=== PATIENT | female | born 1945 | race Two or more races ===

== ENCOUNTER 2018-07-13 09:34 | Outpatient (CLI) | payer OTHER | END 2018-07-13 09:40 | disposition home or self-care (01) | LOC: LAB 09:34 | DX: I10 Essential (primary) hypertension (principal); M54.5 Low back pain; E55.9 Vitamin D deficiency, unspecified; E66.8 Other obesity; M89.9 Disorder of bone, unspecified; M81.0 Age-related osteoporosis without current pathological fracture; Z12.11 Encounter for screening for malignant neoplasm of colon; Z12.31 Encounter for screening mammogram for malignant neoplasm of breast ==

== ENCOUNTER → 2018-07-18 08:19 | Outpatient (CLI) | payer OTHER | END | disposition home or self-care (01) | LOC: LAB 08:19 | DX: Z12.11 Encounter for screening for malignant neoplasm of colon (principal); I10 Essential (primary) hypertension; M54.5 Low back pain; E55.9 Vitamin D deficiency, unspecified; E66.8 Other obesity; M89.9 Disorder of bone, unspecified; M81.0 Age-related osteoporosis without current pathological fracture; Z12.31 Encounter for screening mammogram for malignant neoplasm of breast ==

== ENCOUNTER 2018-07-22 14:01 | Outpatient (CLI) | payer OTHER | END 2018-07-22 14:19 | disposition home or self-care (01) | LOC: MAMO-SONO 14:01 | DX: Z12.31 Encounter for screening mammogram for malignant neoplasm of breast (principal); Z87.898 Personal history of other specified conditions; Z12.11 Encounter for screening for malignant neoplasm of colon; I10 Essential (primary) hypertension; M54.5 Low back pain; E55.9 Vitamin D deficiency, unspecified; E66.8 Other obesity; M81.0 Age-related osteoporosis without current pathological fracture; M89.8X8 Other specified disorders of bone, other site ==

== ENCOUNTER 2018-11-25 10:23 | Outpatient (CLI) | payer OTHER | END 2018-11-25 13:48 | disposition home or self-care (01) | LOC: LAB 10:23 | DX: M54.5 Low back pain (principal); I10 Essential (primary) hypertension; E55.9 Vitamin D deficiency, unspecified; E66.8 Other obesity; M89.8X8 Other specified disorders of bone, other site; M81.0 Age-related osteoporosis without current pathological fracture; Z12.11 Encounter for screening for malignant neoplasm of colon; Z12.31 Encounter for screening mammogram for malignant neoplasm of breast ==

== ENCOUNTER 2019-03-17 08:35 | Outpatient (CLI) | payer OTHER | END 2019-03-17 16:21 | disposition home or self-care (01) | LOC: LAB 08:35 | DX: M54.5 Low back pain (principal); E55.9 Vitamin D deficiency, unspecified; E66.8 Other obesity; M89.8X8 Other specified disorders of bone, other site; I11.9 Hypertensive heart disease without heart failure; E55.0 Rickets, active; M81.0 Age-related osteoporosis without current pathological fracture; E66.01 Morbid (severe) obesity due to excess calories; E66.3 Overweight; E64.8 Sequelae of other nutritional deficiencies; Z12.11 Encounter for screening for malignant neoplasm of colon; Z12.31 Encounter for screening mammogram for malignant neoplasm of breast ==

== ENCOUNTER → 2019-07-10 10:37 | Outpatient (CLI) | payer OTHER | END | disposition home or self-care (01) | LOC: LAB 10:37 | DX: M54.5 Low back pain (principal); E55.9 Vitamin D deficiency, unspecified; E66.8 Other obesity; M89.9 Disorder of bone, unspecified; I11.9 Hypertensive heart disease without heart failure; E55.0 Rickets, active; M81.0 Age-related osteoporosis without current pathological fracture; E66.01 Morbid (severe) obesity due to excess calories; E66.3 Overweight; Z12.11 Encounter for screening for malignant neoplasm of colon; Z12.31 Encounter for screening mammogram for malignant neoplasm of breast; E64.8 Sequelae of other nutritional deficiencies ==

== ENCOUNTER → 2019-07-16 | Outpatient (CLI) | payer OTHER | END | disposition home or self-care (01) | LOC: NUCLEAR 12:34 | DX: M81.0 Age-related osteoporosis without current pathological fracture (principal) ==

== ENCOUNTER 2019-07-28 09:09 | Outpatient (CLI) | payer OTHER | END 2019-07-28 09:11 | disposition home or self-care (01) | LOC: MAMO-SONO 09:09 | DX: Z12.31 Encounter for screening mammogram for malignant neoplasm of breast (principal); M54.5 Low back pain; E55.9 Vitamin D deficiency, unspecified; E66.8 Other obesity; M89.8X8 Other specified disorders of bone, other site; I11.9 Hypertensive heart disease without heart failure; E55.0 Rickets, active; M81.0 Age-related osteoporosis without current pathological fracture; E66.01 Morbid (severe) obesity due to excess calories; E66.3 Overweight; E64.8 Sequelae of other nutritional deficiencies; Z12.11 Encounter for screening for malignant neoplasm of colon ==

== ENCOUNTER 2019-09-02 09:04 | Outpatient (CLI) | payer OTHER | END 2019-09-02 10:02 | disposition home or self-care (01) | LOC: LAB 09:04 | DX: M54.5 Low back pain (principal); E66.8 Other obesity; E55.9 Vitamin D deficiency, unspecified; M89.8X8 Other specified disorders of bone, other site; I11.9 Hypertensive heart disease without heart failure; E55.0 Rickets, active; M81.0 Age-related osteoporosis without current pathological fracture; E66.01 Morbid (severe) obesity due to excess calories; E66.3 Overweight; E64.8 Sequelae of other nutritional deficiencies; Z12.11 Encounter for screening for malignant neoplasm of colon; Z12.31 Encounter for screening mammogram for malignant neoplasm of breast ==

== ENCOUNTER → 2020-03-08 07:15 | Outpatient (CLI) | payer OTHER | END | disposition home or self-care (01) | LOC: LAB 07:15 | PROVIDERS: ATTEND Internal Medicine | DX: M54.5 Low back pain (principal); E55.9 Vitamin D deficiency, unspecified; E66.8 Other obesity; M89.8X8 Other specified disorders of bone, other site; I11.9 Hypertensive heart disease without heart failure; E55.0 Rickets, active; M81.0 Age-related osteoporosis without current pathological fracture; E66.01 Morbid (severe) obesity due to excess calories; E66.3 Overweight; E64.9 Sequelae of unspecified nutritional deficiency; Z12.11 Encounter for screening for malignant neoplasm of colon; Z12.31 Encounter for screening mammogram for malignant neoplasm of breast ==

== ENCOUNTER → 2020-03-09 | Outpatient (CLI) | payer OTHER | END | disposition home or self-care (01) | LOC: LAB 07:03 | PROVIDERS: ATTEND Internal Medicine | DX: M54.5 Low back pain (principal); E55.9 Vitamin D deficiency, unspecified; E66.8 Other obesity; M89.8X8 Other specified disorders of bone, other site; I11.9 Hypertensive heart disease without heart failure; E55.0 Rickets, active; M81.0 Age-related osteoporosis without current pathological fracture; E66.01 Morbid (severe) obesity due to excess calories; E66.3 Overweight; Z12.11 Encounter for screening for malignant neoplasm of colon; Z12.31 Encounter for screening mammogram for malignant neoplasm of breast ==

== ENCOUNTER → 2020-08-21 07:28 | Outpatient (CLI) | payer OTHER | END | disposition home or self-care (01) | LOC: LAB 07:28 | PROVIDERS: ATTEND Internal Medicine | DX: E03.8 Other specified hypothyroidism (principal); I11.9 Hypertensive heart disease without heart failure; E55.0 Rickets, active; E64.9 Sequelae of unspecified nutritional deficiency; E66.01 Morbid (severe) obesity due to excess calories; E66.3 Overweight; E55.9 Vitamin D deficiency, unspecified; E66.8 Other obesity; I10 Essential (primary) hypertension; M54.5 Low back pain; E78.89 Other lipoprotein metabolism disorders ==

== ENCOUNTER 2020-12-04 08:17 | Outpatient (CLI) | payer OTHER | END 2020-12-04 08:26 | disposition home or self-care (01) | LOC: LAB 08:17 | PROVIDERS: ATTEND Internal Medicine | DX: E03.8 Other specified hypothyroidism (principal); E55.0 Rickets, active; E66.01 Morbid (severe) obesity due to excess calories; E66.3 Overweight; E55.9 Vitamin D deficiency, unspecified; E66.8 Other obesity; I10 Essential (primary) hypertension; M54.5 Low back pain; E78.89 Other lipoprotein metabolism disorders ==

== ENCOUNTER 2021-10-10 10:13 | Outpatient (CLI) | payer OTHER | END 2021-10-10 15:00 | disposition home or self-care (01) | LOC: LAB 10:13 | PROVIDERS: ATTEND Internal Medicine | DX: E03.8 Other specified hypothyroidism (principal); I11.9 Hypertensive heart disease without heart failure; E55.0 Rickets, active; E64.8 Sequelae of other nutritional deficiencies; E66.01 Morbid (severe) obesity due to excess calories; E66.3 Overweight; E55.9 Vitamin D deficiency, unspecified; E66.8 Other obesity; Z12.11 Encounter for screening for malignant neoplasm of colon; I10 Essential (primary) hypertension; M54.59 Other low back pain; Z12.31 Encounter for screening mammogram for malignant neoplasm of breast; Z13.820 Encounter for screening for osteoporosis; E78.89 Other lipoprotein metabolism disorders ==

== ENCOUNTER → 2021-11-14 09:40 | Outpatient (CLI) | payer OTHER | END | disposition home or self-care (01) | LOC: LAB 09:40 | PROVIDERS: ATTEND Internal Medicine | DX: E03.9 Hypothyroidism, unspecified (principal); E55.0 Rickets, active; E64.9 Sequelae of unspecified nutritional deficiency; E66.01 Morbid (severe) obesity due to excess calories; E66.3 Overweight; E55.9 Vitamin D deficiency, unspecified; E66.8 Other obesity; I10 Essential (primary) hypertension; M54.50 Low back pain, unspecified; E78.9 Disorder of lipoprotein metabolism, unspecified; Z12.31 Encounter for screening mammogram for malignant neoplasm of breast; Z12.11 Encounter for screening for malignant neoplasm of colon ==

== ENCOUNTER 2021-11-14 11:17 | Outpatient (CLI) | payer OTHER | END 2021-11-14 12:00 | disposition home or self-care (01) | LOC: MAMO-SONO 11:17 | PROVIDERS: ATTEND Internal Medicine | DX: N60.11 Diffuse cystic mastopathy of right breast (principal) ==

== ENCOUNTER 2021-12-05 11:10 | Outpatient (CLI) | payer OTHER | END 2021-12-05 11:11 | disposition home or self-care (01) | LOC: NUCLEAR 11:10 | PROVIDERS: ATTEND Internal Medicine | DX: M81.0 Age-related osteoporosis without current pathological fracture (principal); M54.59 Other low back pain ==